=== PATIENT | male | born 1955 | race Caucasian/White ===

== ENCOUNTER 2020-12-25 07:27 | Inpatient (IN) | payer MEDICAID, MEDICARE ==
[~2020-12-25] VITALS: Ht 210.8 cm; Wt 128.3 kg
[~2020-12-25 07:27] MED LIST: ALPR1TAB10 PO; TRAZ150T62 PO; antidepressants
[2020-12-25 09:41] LABS: BASOPHILS % (AUTO) 1 % (0-1); EOSINOPHILS % (AUTO) 0 % (1-7); LYMPHOCYTES % (AUTO) 16 % (22-44); MEAN CORPUSCULAR HEMOGLOBIN 26.6 pg (27.5-34.5); MEAN CORPUSCULAR HGB CONC 32.3 g/dL (33.2-36.2); MEAN PLATELET VOLUME 7.6 fL (7.4-10.4); MONOCYTES % (AUTO) 4 % (2-9); NEUTROPHILS % (AUTO) 79 % (42-75); PLATELET COUNT 247 x10^3/uL (130-400); RED BLOOD COUNT 4.47 x10^6/uL (4.38-5.82); RED CELL DISTRIBUTION WIDTH 21.2 % (9.4-14.8)
[2020-12-25] MEDS ORDERED: HYDROmorphone 2 MG/ML, 1ML ONE (09:42)
[2020-12-25] MEDS ORDERED: DILTIAZEM 5 MG/ML, 5ML ONE (09:42)
[2020-12-25] MEDS ORDERED: KETOROLAC 30 MG/1 ML ONE (09:42)
[2020-12-25 09:53] LABS: ALBUMIN 3.4 g/dL (3.4-5.0); ANION GAP 22 mmol/L (5-15); CALCIUM 8.1 mg/dL (8.5-10.1); CHLORIDE 100 mmol/L (98-107)
[2020-12-25] MEDS ORDERED: KETOROLAC 30 MG/1 ML IVPush ONE (10:00)
[2020-12-25] MEDS ORDERED: HYDROmorphone 1 MG/ML, 1ML INJ IV ONE (10:00)
[2020-12-25] MEDS ORDERED: DILTIAZEM 5 MG/ML, 5ML IVPush ONE (10:00)
--- NOTE | 2020-12-25 10:04 | NUR ---
BIBA C/O WORSENING CHRONIC RT HIP PAIN RAD TO KNEE ("NEED HIP REPLACEMENT"), SP CATH "NOT DRAINING" X3 DAYS, CHILLS, +ETOH- "17 DRINKS/DAY, ANYTHING BUT VODKA", HX A-FIB- NEEDS REFILL OF MEDS. PT IN BED IN GOWN WITH CONT GUM MAKER, SPO2, BP Q 30 MIN, SIDE RAILS UP X2, CALL LIGHT IN REACH.
[2020-12-25 10:05] LABS: ALANINE AMINOTRANSFERASE 30 U/L (12-78); ALKALINE PHOSPHATASE 123 U/L (45-117); BILIRUBIN,TOTAL 0.7 mg/dL (0.2-1.0)
--- NOTE | 2020-12-25 10:07 | NUR ---
PT HAS A URINE BAG ON HIS RIGHT LEG AND DOES NOT KNOW WHY HE HAS IT. REPOTS IT IS NOT DRANING. 100ML UINE DRAINED AT THIS TIME. PAIN 2/10 AT THIS TIME
[2020-12-25 11:12] LABS: MICROSCOPIC AUTO
[2020-12-25] MEDS ORDERED: CEFTRIAXONE 1,000 MG in DEXTROSE 5% 50 ML IVPB ONE (11:30)
--- NOTE | 2020-12-25 11:37 | NUR ---
LAB IN ROOM
--- NOTE | 2020-12-25 12:13 | NUR ---
REPOSITIONED FOR COMFORT. WENT OVER POC. PT AGREES TO PLAN. URINE CATH IS DELROY, PT EDUCATED ON SELF CATH CARE
[2020-12-25] MEDS ORDERED: APIXABAN 5 MG TABLET PO STA (12:26)
[2020-12-25] MEDS ORDERED: ONDANSETRON ODT 4 MG ONE (12:27)
[2020-12-25] MEDS ORDERED: SODIUM CHLORIDE 0.9% 1,000ML IVBOLUS ONE (13:00)
[2020-12-25] MEDS ORDERED: APIXABAN 5 MG TABLET ONE (13:17)
--- NOTE | 2020-12-25 13:20 | NUR ---
HOSPITALIST IN ROOM AT THIS TIME
[2020-12-25] MEDS ORDERED: LORazepam 2 MG/ML, 1ML IV PRN ×2 (14:00)
[2020-12-25] MEDS ORDERED: POLYETHYLENE GLYCOL 17 GM PACKET PO PRN (14:00)
[2020-12-25] MEDS ORDERED: DOCUSATE 100 MG CAPSULE PO PRN (14:00)
[2020-12-25] MEDS ORDERED: THIAMINE 100MG TABLET PO ONE (14:00)
[2020-12-25] MEDS ORDERED: LORazepam 2 MG/ML, 1ML ONE ×2 (14:41→16:21)
[2020-12-25] MEDS: PIPERACILLIN/TAZO 3.375 GM in DEXTROSE 5% 50 ML IVPB SCH ×2 (14:44→23:34)
[2020-12-25] MEDS: LORazepam 2 MG/ML, 1ML IV PRN ×3 (14:44→20:54)
--- NOTE | 2020-12-25 15:13 | NUR ---
PULLED PT UA CATH PER MD PENNY. PT REQUESTS THAT HE DOES NOT GET A NEW CATH"I WOULD LIKE TO TRY TO PEE". PT CIWA IS 12, 2 MG ATIVAN GIVEN
--- NOTE | 2020-12-25 15:15 | NUR ---
Gave report to Patricia Oro RN
[2020-12-25] MEDS ORDERED: LIDODERM 5% PATCH TD ONE (16:17)
[2020-12-25] MEDS: LIDODERM 5% PATCH TD SCH (16:35)
--- NOTE | 2020-12-25 16:35 | NUR ---
Dr Lew called and notified of pt's sustained HR 140's to 150's. Orders received
[2020-12-25] MEDS ORDERED: METOPROLOL TARTRATE 25 MG TAB PO ONE (17:00)
[2020-12-25] MEDS ORDERED: METOPROLOL TARTRATE 25 MG TAB ONE (17:01)
[2020-12-25] MEDS: FOLIC ACID 1 MG TABLET PO SCH (17:52)
[2020-12-25] MEDS ORDERED: HYDROcodone/APAP 5/325 TABLET ONE (18:17)
[2020-12-25] MEDS: HYDROcodone/APAP 5/325 TABLET PO PRN ×2 (18:20→22:48)
--- NOTE | 2020-12-25 18:55 | NUR ---
Attempted to call report to floor
--- NOTE | 2020-12-25 19:26 | NUR ---
REPORT GIVEN TO FLOOR RN BY ISMAEL LAGUNAS.
--- NOTE | 2020-12-25 19:26 | NUR ---
ROOM CLEAN IN 10 MIN PER FLOOR RN.
[2020-12-25] MEDS: LACTATED RINGERS 1,000 ML IV SCH ×3 (20:00→20:54)
[2020-12-25 20:04] VITALS: BP 149/70
[2020-12-25] MEDS: APIXABAN 5 MG TABLET PO SCH (20:31)
[2020-12-25] MEDS: MELATONIN 5 MG TABLET PO PRN (20:31)
[2020-12-26 01:42] VITALS: BP 156/55
[2020-12-26] MEDS: LORazepam 2 MG/ML, 1ML IV PRN ×2 (01:45→11:49)
[2020-12-26] MEDS ORDERED: LISI40TA9 PO (02:31)
[2020-12-26] MEDS ORDERED: TRAM50TA2 PO (02:32)
[2020-12-26] MEDS ORDERED: APIX5TAB PO (02:32)
[2020-12-26 06:30] LABS: BASOPHILS % (AUTO) 0 % (0-1); EOSINOPHILS % (AUTO) 1 % (1-7); LYMPHOCYTES % (AUTO) 23 % (22-44); MEAN CORPUSCULAR HEMOGLOBIN 26.8 pg (27.5-34.5); MEAN CORPUSCULAR HGB CONC 32.5 g/dL (33.2-36.2); MEAN PLATELET VOLUME 7.7 fL (7.4-10.4); MONOCYTES % (AUTO) 8 % (2-9); NEUTROPHILS % (AUTO) 68 % (42-75); PLATELET COUNT 163 x10^3/uL (130-400); RED BLOOD COUNT 4.24 x10^6/uL (4.38-5.82); RED CELL DISTRIBUTION WIDTH 20.6 % (9.4-14.8)
[2020-12-26 06:37] LABS: ANION GAP 8 mmol/L (5-15); CALCIUM 7.9 mg/dL (8.5-10.1); CHLORIDE 101 mmol/L (98-107)
[2020-12-26 06:38] LABS: CREATININE 0.61 mg/dL (0.7-1.3)
[2020-12-26 07:15] VITALS: BP 136/81
[2020-12-26] MEDS: APIXABAN 5 MG TABLET PO SCH ×2 (09:09→21:32)
[2020-12-26] MEDS: FOLIC ACID 1 MG TABLET PO SCH (09:09)
[2020-12-26] MEDS: METOPROLOL TARTRATE 25 MG TAB PO SCH ×2 (09:09→21:32)
[2020-12-26] MEDS: MULTIVITAMINS/MINERALS TABLET PO SCH (09:09)
[2020-12-26] MEDS: PIPERACILLIN/TAZO 3.375 GM in DEXTROSE 5% 50 ML IVPB SCH ×2 (09:24→17:22)
[2020-12-26] MEDS ORDERED: POTASSIUM CHLORIDE 20 MEQ TAB.ER.PRT PO ONE (12:00)
[2020-12-26 12:53] VITALS: BP 131/79
[2020-12-26] MEDS: LIDODERM 5% PATCH TD SCH (14:29)
[2020-12-26 20:17] VITALS: BP 123/82
[2020-12-26 21:27] VITALS: BP 158/94
[2020-12-26] MEDS: MELATONIN 5 MG TABLET PO PRN (21:31)
[2020-12-26] MEDS: LORazepam 0.5MG TABLET PO PRN (21:42)
[2020-12-27 00:31] VITALS: BP 130/83
[2020-12-27] MEDS: PIPERACILLIN/TAZO 3.375 GM in DEXTROSE 5% 50 ML IVPB SCH ×3 (01:35→18:24)
[2020-12-27 05:59] VITALS: BP 170/96
[2020-12-27] MEDS: METOPROLOL TARTRATE 25 MG TAB PO SCH ×2 (06:01→18:24)
[2020-12-27 06:54] LABS: ANION GAP 8 mmol/L (5-15); CALCIUM 8.4 mg/dL (8.5-10.1); CHLORIDE 104 mmol/L (98-107)
[2020-12-27 06:56] LABS: CREATININE 0.65 mg/dL (0.7-1.3)
[2020-12-27 07:52] VITALS: BP 144/81
[2020-12-27] MEDS: FOLIC ACID 1 MG TABLET PO SCH (09:27)
[2020-12-27] MEDS: MULTIVITAMINS/MINERALS TABLET PO SCH (09:27)
[2020-12-27] MEDS: APIXABAN 5 MG TABLET PO SCH ×2 (09:27→21:03)
[2020-12-27] MEDS: LORazepam 0.5MG TABLET PO PRN ×3 (12:45→21:03)
[2020-12-27 14:08] LABS: ANION GAP 7 mmol/L (5-15); CHLORIDE 103 mmol/L (98-107); CREATININE 0.53 mg/dL (0.7-1.3)
[2020-12-27 14:59] VITALS: BP 123/93
[2020-12-27] MEDS ORDERED: POTASSIUM CHLORIDE 20 MEQ in SODIUM CHLORIDE 0.9% 250 ML IV ONE (16:00)
[2020-12-27] MEDS ORDERED: POTASSIUM CHLORIDE 20 MEQ TAB.ER.PRT PO ONE (16:00)
[2020-12-27] MEDS: LIDODERM 5% PATCH TD SCH (16:38)
[2020-12-27] MEDS ORDERED: METO25TA35 PO (18:39)
[2020-12-27] MEDS ORDERED: SULF1TAB24 PO (18:39)
[2020-12-27 20:59] VITALS: BP 144/91
[2020-12-27] MEDS: MELATONIN 5 MG TABLET PO PRN (21:02)
[2020-12-28 00:17] VITALS: BP 152/90
[2020-12-28] MEDS: LORazepam 2 MG/ML, 1ML IV PRN (02:48)
[2020-12-28] MEDS: PIPERACILLIN/TAZO 3.375 GM in DEXTROSE 5% 50 ML IVPB SCH ×3 (03:10→18:14)
[2020-12-28 05:33] VITALS: BP 194/92
[2020-12-28] MEDS: METOPROLOL TARTRATE 25 MG TAB PO SCH ×2 (05:39→18:15)
[2020-12-28 10:40] VITALS: BP 161/72
[2020-12-28] MEDS: APIXABAN 5 MG TABLET PO SCH ×2 (10:43→20:55)
[2020-12-28] MEDS: LORazepam 0.5MG TABLET PO PRN (10:43)
[2020-12-28] MEDS: MULTIVITAMINS/MINERALS TABLET PO SCH (10:43)
[2020-12-28] MEDS: FOLIC ACID 1 MG TABLET PO SCH (10:43)
[2020-12-28] MEDS ORDERED: LABETALOL 5MG/ML, 20ML IVPush ONE (11:30)
[2020-12-28 14:08] VITALS: BP 122/76
[2020-12-28] MEDS: LIDODERM 5% PATCH TD SCH (14:19)
[2020-12-28 19:42] VITALS: BP 132/88
[2020-12-28] MEDS: MELATONIN 5 MG TABLET PO PRN (20:59)
[2020-12-29 00:19] VITALS: BP 166/94
[2020-12-29] MEDS: PIPERACILLIN/TAZO 3.375 GM in DEXTROSE 5% 50 ML IVPB SCH ×2 (01:18→08:57)
[2020-12-29] MEDS: LORazepam 2 MG/ML, 1ML IV PRN (01:18)
[2020-12-29 05:16] VITALS: BP 166/79
[2020-12-29] MEDS: METOPROLOL TARTRATE 25 MG TAB PO SCH (05:16)
[2020-12-29 08:28] VITALS: BP 167/98
[2020-12-29] MEDS: MULTIVITAMINS/MINERALS TABLET PO SCH (08:56)
[2020-12-29] MEDS: APIXABAN 5 MG TABLET PO SCH (08:56)
[2020-12-29] MEDS: FOLIC ACID 1 MG TABLET PO SCH (08:56)
[2020-12-29] MEDS ORDERED: ACETAMINOPHEN 325 MG TABLET PO PRN (13:30)
[2020-12-29] MEDS ORDERED: APIX5TAB PO (13:45)
[2020-12-29] MEDS ORDERED: ACET325T26 PO (13:45)
[2020-12-29] MEDS ORDERED: TRAM50TA2 PO (13:45)
[2020-12-29] MEDS ORDERED: MULT-484 PO (13:45)
[2020-12-29] MEDS ORDERED: LORA-446 PO (13:45)
[2020-12-29] MEDS: LIDODERM 5% PATCH TD SCH (14:00)
[2020-12-29 15:22] VITALS: BP 152/88
== END 2020-12-29 16:11 | DRG 698 ==
LOC: SUATTDRO 13:02 → ED 14:05 → EDIP 14:15 → 4WST 19:46
PROVIDERS: ADMIT Family Medicine; ATTEND Internal Medicine
DX: T83.518A Infection and inflammatory reaction due to other urinary catheter, initial encounter (principal); A41.9 Sepsis, unspecified organism; R65.20 Severe sepsis without septic shock; E87.1 Hypo-osmolality and hyponatremia; E87.2 Acidosis; I48.20 Chronic atrial fibrillation, unspecified; K52.1 Toxic gastroenteritis and colitis; D64.9 Anemia, unspecified; E66.01 Morbid (severe) obesity due to excess calories; E86.0 Dehydration; E87.6 Hypokalemia; G89.29 Other chronic pain; Z66 Do not resuscitate; Z20.822 Contact with and (suspected) exposure to COVID-19; T36.95XA Adverse effect of unspecified systemic antibiotic, initial encounter; N30.90 Cystitis, unspecified without hematuria; R74.01 Elevation of levels of liver transaminase levels; Y84.6 Urinary catheterization as the cause of abnormal reaction of the patient, or of later complication, without mention of misadventure at the time of the procedure; M16.0 Bilateral primary osteoarthritis of hip; I10 Essential (primary) hypertension; Z91.14 Patient's other noncompliance with medication regimen; Z90.81 Acquired absence of spleen; Z82.49 Family history of ischemic heart disease and other diseases of the circulatory system; Z79.01 Long term (current) use of anticoagulants; Y92.89 Other specified places as the place of occurrence of the external cause; Z68.28 Body mass index [BMI] 28.0-28.9, adult
CPT/HCPCS: 36415; 71045; 80048; 80053; 80320; 81001; 83605; 83735; 83930; 84100; 84443; 85025; 87040; 87077; 87086; 87186; 93005; 96365; 96366; 96375; 99285; G0378; J0696; J1170; J1885; J2543; J3480; U0005; G0480; J2060; J7030; J7050; J7120; U0003